=== PATIENT | male | born 1995 | race African-American/Black ===

== ENCOUNTER 2019-05-03 21:52 | Emergency (ER) | payer SELFPAY ==
[~2019-05-03] VITALS: Ht 172.7 cm; Wt 59.1 kg
[2019-05-03 22:25] VITALS: Ht 172.7 cm; Wt 59.1 kg
[2019-05-04] MEDS ORDERED: IBUPROFEN800 MG PO (00:32)
[2019-05-04 00:39] VITALS: BP 130/84
== END 2019-05-04 00:39 | disposition home or self-care (01) ==
LOC: D.ER 21:52
DX: R07.81 Pleurodynia (principal); Y09 Assault by unspecified means; Z72.0 Tobacco use